=== PATIENT | male | born 2005 | race Two or more races ===

== ENCOUNTER 2025-01-25 02:35 | Inpatient (IN) | payer MEDICAID ==
[~2025-01-25] VITALS: Ht 177.8 cm; Wt 68.6 kg
[2025-01-25 08:59] VITALS: BP 124/68; PULSE 82; RESP 18; TEMP 98.1; O2SAT 97
[2025-01-25] MEDS ORDERED: magnesium hydroxide 30ml (MOM) UD suspension PO PRN (11:10)
[2025-01-25] MEDS ORDERED: mag hydrox/Alum hydrox/simeth 30ml oral suspension PO PRN (11:10)
[2025-01-25] MEDS ORDERED: loperamide 2mg capsule PO PRN (11:10)
[2025-01-25] MEDS ORDERED: NO HOME MEDS (11:25)
[2025-01-25] MEDS: hydrOXYzine 25 MG tablet PO PRN (11:45)
[2025-01-25] MEDS: acetaminophen 325mg tablet PO PRN (11:46)
[2025-01-25] MEDS: LORazepam 1 MG tablet PO ONE (15:56)
[2025-01-25 19:00] VITALS: RESP 15; O2SAT 99
[2025-01-25 20:00] VITALS: BP 112/60; PULSE 70; RESP 15; TEMP 98.4; O2SAT 99
[2025-01-25] MEDS: gabapentin 400mg capsule PO SCH (20:44)
[2025-01-25] MEDS: traZODone 50mg tablet PO SCH (20:44)
[2025-01-26 07:46] VITALS: BP 116/55; PULSE 51; RESP 16; TEMP 98.7; O2SAT 95
[2025-01-26 08:37] LABS: THYROID STIMULATING HORMONE 1.04 ulU/ml (0.34-4.50)
[2025-01-26] MEDS ORDERED: gabapentin 400mg capsule PO SCH (10:45)
[2025-01-26] MEDS ORDERED: gabapentin 100mg capsule PO SCH (11:29)
[2025-01-26] MEDS: sertraline 50mg tablet PO SCH (12:03)
[2025-01-26] MEDS: gabapentin 100mg capsule PO SCH (12:03)
[2025-01-26 19:00] VITALS: RESP 16; O2SAT 97
[2025-01-26 20:02] VITALS: BP 113/68; PULSE 83; RESP 16; TEMP 98.5; O2SAT 97
[2025-01-26] MEDS: traZODone 50mg tablet PO SCH (21:16)
[2025-01-27 07:30] VITALS: BP 95/47; PULSE 77; RESP 15; TEMP 98.9; O2SAT 98
[2025-01-27 15:49] LABS: CHOL/HDL RATIO 2.7 (0.00-4.99); CHOLESTEROL 115 MG/DL (0-200); HDL CHOLESTEROL 43 MG/DL (35-60); LDL CHOLESTEROL 56 MG/DL (50-100); TRIGLYCERIDES 193 MG/DL (20-135)
[2025-01-27 19:35] VITALS: RESP 17; O2SAT 99
[2025-01-27 20:00] VITALS: BP 117/72; PULSE 72; RESP 17; TEMP 97.1; O2SAT 99
[2025-01-27] MEDS: aripiprazole 5mg tablet PO SCH (20:18)
[2025-01-28 07:00] VITALS: RESP 18; O2SAT 97
[2025-01-28 08:00] VITALS: BP 124/52; PULSE 88; RESP 18; TEMP 97.8; O2SAT 97
[2025-01-28] MEDS: acetaminophen 325mg tablet PO PRN (08:33)
[2025-01-28 19:36] VITALS: RESP 16; O2SAT 98
[2025-01-28 19:37] VITALS: BP 116/68; PULSE 78; RESP 16; TEMP 98.6; O2SAT 98
[2025-01-28] MEDS: traZODone 50mg tablet PO SCH (21:16)
[2025-01-29 07:00] VITALS: RESP 16; O2SAT 94
[2025-01-29] MEDS: pantoprazole 40mg Tablet.DR PO SCH (07:23)
[2025-01-29 08:51] VITALS: BP 118/67; PULSE 80; RESP 16; TEMP 98.5; O2SAT 94
[2025-01-29 20:00] VITALS: RESP 16
[2025-01-30 07:00] VITALS: RESP 18; O2SAT 100
[2025-01-30 08:00] VITALS: BP 116/69; PULSE 91; RESP 18; TEMP 98; O2SAT 100
[2025-01-30] MEDS ORDERED: PANT40TA54 PO (09:53)
[2025-01-30] MEDS ORDERED: SERT-433 PO (09:53)
[2025-01-30] MEDS ORDERED: HYDR-3686 PO (09:53)
[2025-01-30] MEDS ORDERED: TRAZ-251 PO (09:53)
== END 2025-01-30 12:14 | disposition home or self-care (01) | DRG 756 ==
LOC: ADULT MH 08:59
PROVIDERS: ADMIT Psychiatry & Neurology Psychiatry; ATTEND Psychiatry & Neurology Psychiatry
PROC: GZHZZZZ Group Psychotherapy (ICD-10-PCS; principal; 2025-01-25)
PROC: GZ51ZZZ Individual Psychotherapy, Behavioral (ICD-10-PCS; 2025-01-25)
DX: F41.9 Anxiety disorder, unspecified (principal); F29 Unspecified psychosis not due to a substance or known physiological condition; F32.A Depression, unspecified; G47.00 Insomnia, unspecified; K21.9 Gastro-esophageal reflux disease without esophagitis; R51.9 Headache, unspecified; K27.9 Peptic ulcer, site unspecified, unspecified as acute or chronic, without hemorrhage or perforation; Z87.891 Personal history of nicotine dependence; Z79.899 Other long term (current) drug therapy
CPT/HCPCS: 36415; 80061; 83036; 84443; 87081; 99285; Q0177